=== PATIENT | male | born 1970 | race Caucasian/White ===

== ENCOUNTER 2025-06-08 00:14 | Day surgery (SDC) | payer BC, SELFPAY ==
[2025-05-29 10:43] VITALS: BMI 35.9
[2025-06-08 07:39] VITALS: BP 155/86; PULSE 89; RESP 15; TEMP 36.7; O2SAT 100; BMI 35.4
[2025-06-08] MEDS: LACTATED RINGERS 1,000 ML 150 ML IV CONT (07:46)
--- NOTE | 2025-06-08 08:29 | PM.IMHP ---
H&P: HPI History of Present Illness Date/Time: 06/08/25 08:29 Chief Complaint: History of colon polyps Narrative: The patient has a history of colonic polyps, the last colonoscopy was 5 years ago. Review of Systems Review of Systems: All systems reviewed & are unremarkable except as noted in HPI and below PMFSH Social History Social History Smoking status: Never smoker Alcohol intake: current Alcohol use details: socially Substance use: never Substance use type: does not use Living arrangements: with family Spiritual care concerns: No Meds Home Medications and Allergies Home Medications ?Medication ?Instructions ?Recorded ?Confirmed ?Type aspirin 81 mg tablet,delayed 81 mg PO DAILY 05/29/25 06/08/25 History release (Adult Aspirin Regimen) irbesartan 150 mg tablet 150 mg PO DAILY 05/29/25 06/08/25 History vitamin B complex 1 tablet PO DAILY 05/29/25 06/08/25 History Allergies Allergy/AdvReac Type Severity Reaction Status Date / Time No Known Allergies Allergy Verified 06/08/25 07:38 Vital Signs Vital Signs - 24 hr 06/08/25 07:39 Temperature 98.0 F Pulse Rate 89 Respiratory Rate 15 Blood Pressure 155/86 H Pulse Oximetry 100 Oxygen Delivery Room Air Exam Const: General: cooperative and healthy appearing Resp: Effort & Inspection: normal respiratory effort and able to speak in complete sentences Auscultation: clear to auscultation bilaterally Cardio: Rate: regular rate Rhythm: regular rhythm GI: Inspection: normal to inspection GI Palp: No No hepatosplenomegaly present Auscultation: normal bowel sounds Rectal Exam: deferred Skin: General skin exam: normal color Psych: Appearance: grossly normal Mental Status: mental status grossly normal Assessment and Plan Assessment and plan (1) History of colonic polyps: Code(s): Z86.0100 - Personal history of colon polyps, unspecified Status: Acute Assessment and Plan: The patient is deemed a good candidate for the procedure. Consent signed. Will proceed.
--- NOTE | 2025-06-08 08:56 | WPDANESEPPF ---
Anes - Initial Pre Proc Eval Procedure: Operation Date: 06/08/25 09:00 Proposed Procedures p Screening Colonoscopy - Ayaan Bowling MD Date/Time: 06/08/25 08:56 Surgeon: Ayaan Bowling MD Pre Op Diagnosis: Personal history of colon polyps, unspecified Patient Data Age: 54 Gender: M Height: 1.7 m Weight: 102.5 kg Last Vital Signs Temp 98.0 F 06/08/25 07:39 Pulse 89 06/08/25 07:39 Resp 15 06/08/25 07:39 BP 155/86 H 06/08/25 07:39 Pulse Ox 100 06/08/25 07:39 O2 Del Method Room Air 06/08/25 07:39 Allergies Allergy/AdvReac Type Severity Reaction Status Date / Time No Known Allergies Allergy Verified 06/08/25 07:38 Home Medications ?Medication ?Instructions ?Recorded ?Confirmed ?Type aspirin 81 mg tablet,delayed 81 mg PO DAILY 05/29/25 06/08/25 History release (Adult Aspirin Regimen) irbesartan 150 mg tablet 150 mg PO DAILY 05/29/25 06/08/25 History vitamin B complex 1 tablet PO DAILY 05/29/25 06/08/25 History Patient hx anesthesia problems: none Family hx anesthesia problems: none Results Review: All pre-operative results and documents have been reviewed as part of the pre-operative evaluation. [facility] Social History Social History Smoking status: Never smoker Alcohol intake: current Alcohol use details: socially Substance use: never Substance use type: does not use Living arrangements: with family Spiritual care concerns: No Anes - Eval Final PreProcedure Day of Procedure 06/08/25 08:56 Patient weight: obese Lungs: normal air movement Airway: Mallampati scale class II Neurological: alert and oriented Last oral intake: >/= 8 hours ASA classification: II Emergent: no Anesthetic plan: proceed Anesthesia type and monitoring: general GIVS and standard monitoring Results Review: All pre-operative results and documents have been reviewed as part of the pre-operative evaluation. HTN, active w hunting/fishing, no cp or sob. Informed Consent: The patient's anesthetic plan and its attendant risks and benefits were discussed with the patient/family/POA. Questions were solicited and answers provided to the satisfaction of the patient/family/POA.
[2025-06-08] MEDS: SIMETHICONE ORAL SUSPENSION 20 MG/0.3 ML 30 ML BOTTLE 0.6 ML IRRIGATION (09:07)
[2025-06-08 09:15] VITALS: BP 133/90; PULSE 95; RESP 24; O2SAT 98
[2025-06-08 09:30] VITALS: BP 147/92; PULSE 87; RESP 20; O2SAT 98
[2025-06-08 09:40] VITALS: BP 147/92; PULSE 84; RESP 24; O2SAT 99
== END 2025-06-08 09:43 | disposition home or self-care (01) ==
PROVIDERS: PCP Pediatrics; Referring Provider Internal Medicine Gastroenterology; Visit Provider Internal Medicine Gastroenterology
PROC: 0DJD8ZZ Inspection of Lower Intestinal Tract, Via Natural or Artificial Opening Endoscopic (ICD-10-PCS; CPT 45378; principal; 2025-06-08 09:00)
DX: Z12.11 Encounter for screening for malignant neoplasm of colon (principal); K57.30 Diverticulosis of large intestine without perforation or abscess without bleeding; I10 Essential (primary) hypertension; E66.9 Obesity, unspecified; Z68.35 Body mass index [BMI] 35.0-35.9, adult; Z79.82 Long term (current) use of aspirin; Z86.0100 Personal history of colon polyps, unspecified
CPT/HCPCS: 45378; J2003; J2704; J7120